=== PATIENT | male | born 1960 | race Caucasian/White ===

== ENCOUNTER 2017-05-31 11:31 | Emergency (ER) | payer MEDICAID ==
--- NOTE | ~2017-05-31 | CR72 ---
[facility] A Service of [facility] RADIOLOGY TEXT RESULTS PATIENT: SHAYNE ARMIJO LOCATION: [facility] : 58 UNIT #: [id number] AGE: [address]: Tex Mcnair MD SEX: M ORDER DR: [id number] [facility] [address] [place], [place] [address] [id number] E MR#: [id number] Acc #: [id number] NAME: SHAYNE ARMIJO : 1960 SEX: M STUDY DATE/TIME: 05/31/2017 12:48 UNIT: [facility] ROOM: STUDY DESCRIPTION: CR Chest Single View Portable Attending Physician: Tex Mcnair M.D. Ordering Physician: Tex Mcnair M.D. Primary Care Physician: Dixie Watson A.P.R.N. MEDICAL IMAGING REPORT This report is preliminary unless electronic signature is present EXAM Portable chest 05/31/2017 HISTORY 56-year-old male patient chest pain x1 month. Short of breath, high blood pressure. History of CVA. COMPARISON Chest 11/21/2016. FINDINGS AP upright portable chest demonstrates borderline cardiomegaly. Hilar structures and mediastinal contours are preserved. Bilateral lungs are expanded and clear. Costophrenic angles are preserved. IMPRESSION Borderline cardiac enlargement. Otherwise, negative chest. No acute finding. Dictated by... Alexandre Leija M.D. THIS IS AN ELECTRONICALLY VERIFIED REPORT Alexandre Leija M.D. at 06/01/2017 7:14 AM HUMAIRA/sarahi TD: 05/31/2017 19:25 JOB #: [id number] MEDICAL IMAGING REPORT Page 1 of 1 COPY
--- NOTE | ~2017-05-31 | EKG ---
PATIENT: SHAYNE ARMIJO UNIT #: [id number] Ventricular Rate: 61 BPM Atrial Rate: 61 BPM P-R Interval: 170 ms QRS Duration: 90 ms Q-T Interval: 398 ms QTC Calculation(Bezet): 400 ms P [place]: -2 degrees Calculated R [place]: 15 degrees Calculated T [place]: 20 degrees Diagnosis Line: Normal sinus rhythm Diagnosis Line: Inferior infarct , age undetermined Diagnosis Line: Abnormal ECG Diagnosis Line: When compared with ECG of 21-NOV-2016 21:43, Diagnosis Line: No significant change was found Diagnosis Line: Confirmed by OTONIEL GUERRERO MD ([id number]) on Diagnosis Line: 06/02/2017 7:28:04 AM INTERPRETING MD: YOLANDA DAY
[~2017-05-31 11:31] MED LIST: EXCEDRIN EXTRA1 TAB PO; KLONOPIN0.5 MG PO; LOSARTAN-HCTZ1 EAC1 PO; NORVASC PO; PANTOPRAZOLE SO40 MG PO; PRAVACHOL PO
[2017-05-31 14:12] LABS: BASOPHIL# 0.1 X10e3 (0-0.3); BASOPHIL% 0.7 % (0-2.5); EOSINOPHIL# 0.5 X10e3 (0-0.7); EOSINOPHIL% 5.4 % (0.0-7.0); HEMATOCRIT 44.5 % (38.0-50.0); HEMOGLOBIN 14.9 gm/dL (13.0-16.0); LYMPHOCYTE# 1.6 X10e3 (1.0-3.5); LYMPHOCYTE% 17.7 % (17.0-45.0); MEAN CORPUSCULAR HEMOGLOBIN 32.5 PG (28-34); MEAN CORPUSCULAR HGB CONC 33.5 g/dL (30-36); MEAN PLATELET VOLUME 8.3 FL (6.5-11.5); MONOCYTE% 11.2 % (3.0-12.0); NEUTROPHIL# 5.7 X10e3 (1.5-7.1); PLATELET COUNT 281 X10e3 (140-420); RED BLOOD COUNT 4.58 X10e (3.90-5.60); RED CELL DISTRIBUTION WIDTH 12.7 % (11.0-15.5); WHITE BLOOD COUNT 8.8 X10e3 (4.0-10.5)
[2017-05-31 14:13] LABS: DIFF IND NO
[2017-05-31 14:22] LABS: ALBUMIN SERUM 4.8 g/dL (3.5-5.0); ALKALINE PHOSPHATASE 58 U/L (32-92); ALT (SGPT) 22 U/L (10-40); AST (SGOT) 21 U/L (10-42); BLOOD UREA NITROGEN 17 mg/dL (9-23); BUN/CREATININE RATIO 18.88; CALCIUM SERUM 9.7 mg/dL (8.4-10.2); CARBON DIOXIDE 25 mmol/L (22-31); CHLORIDE 105 mmol/L (100-111); CREATININE SERUM 0.9 mg/dL (0.6-1.4); GLOM FILT RATE Estimated 94.5 mL/min (>60); GLUCOSE FASTING 97 mg/dL (70-110); PROTEIN TOTAL SERUM 7.6 g/dL (6.0-8.3); SODIUM 138 mmol/L (135-145)
[2017-05-31 14:22] LABS: POC - CKMB <1.0 ng/mL (0.0-7.9); POC - TROPONIN <0.05 ng/mL (<=0.05)
[2017-05-31 14:23] LABS: BILIRUBIN, DIRECT <0.1 mg/dL (0.0-0.2); BILIRUBIN,INDIRECT 0.9 mg/dL (0.0-0.9)
== END 2017-05-31 15:30 | disposition home or self-care (01) ==
LOC: CED 11:31
PROVIDERS: Emergency Medicine
DX: R07.89 Other chest pain (principal); I10 Essential (primary) hypertension; F17.200 Nicotine dependence, unspecified, uncomplicated; Z88.0 Allergy status to penicillin
CPT/HCPCS: 36415; 71010; 80048; 80076; 82553; 84484; 85025; 85379; 93005; 99285